=== PATIENT | female | born 1995 | race Caucasian/White ===

== ENCOUNTER 2018-04-17 08:16 | Emergency (ER) | payer BC ==
[2018-04-17] MEDS ORDERED: IBUPROFEN 600 MG TAB PO ONE (09:20)
--- NOTE | 2018-04-17 09:58 | EDPHY ---
H & P Time Seen by Provider: 04/17/18 09:01 HPI/ROS: CHIEF COMPLAINT: Chest pain HISTORY OF PRESENT ILLNESS: 22-year-old female presents emergency department with left-sided chest pain. The patient states that symptoms began yesterday and have been getting worse. She does not feel short of breath however she does have pain with deep breathing as well as palpation to the left side of her chest as well as movement of the left upper extremity. 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 She denies any other known reported trauma. No abdominal pain. No neck pain. She has some left upper back pain as well. No recent travel. No calf pain or swelling. Denies . REVIEW OF SYSTEMS: Constitutional: No fever, no chills. Eyes: No double or blurry vision. ENT: No sore throat. Respiratory: No cough, no shortness of breath. Cardiac: Left-sided chest pain as above. Gastrointestinal: No abdominal pain, vomiting or diarrhea. Genitourinary: No dysuria. Musculoskeletal: No neck or back pain. Skin: No rashes. Neurological: No headache. Past Medical/Surgical History: Negative Social History: [employer] student Smoking Status: Never smoked Physical Exam: General Appearance: Alert, no distress. Eyes: Pupils equal and round. Extraocular motions are all intact. ENT: Mouth: Mucous membranes moist. Respiratory: No wheezing, rhonchi, or rales, lungs are clear to auscultation. Reproducible pain with palpation to the left anterior aspect of her chest wall just above the left breast as well as reproducible pain to the posterior aspect of the left shoulder. No palpable crepitus or other bony abnormality. Cardiovascular: Regular rate and rhythm. Gastrointestinal: Abdomen is soft and nontender, no masses, no rebound or guarding, bowel sounds normal. Neurological: Alert and oriented x 3, cranial nerves II through XII grossly intact Skin: Warm and dry, no rashes. Musculoskeletal: Nontender to palpate along the cervical, thoracic or lumbar spine. Neck is supple. Extremities: Full range of motion and no peripheral edema. She has reproducible pain with range of motion of the left upper extremity as well. Psychiatric: Patient is oriented X 3, there is no agitation. Constitutional: Initial Vital Signs Temperature (C) 36.7 C 04/17/18 08:19 Heart Rate 84 04/17/18 08:19 Respiratory Rate 18 04/17/18 08:19 Blood Pressure 152/107 H 04/17/18 08:19 O2 Sat (%) 97 04/17/18 08:19 O2 Delivery Mode Room Air Allergies/Adverse Reactions: amoxicillin Allergy (Verified 04/17/18 08:18) Home Medications: Medication Instructions Recorded Bcp 04/17/18 Medical Decision Making - Diagnostics EKG Interpretation: EKG reveals normal sinus rhythm. This was reviewed by Dr. Vernon Jay. See interpretation in trace master. ED Course/Re-evaluation: 22-year-old female presents to the emergency department with left-sided chest pain. Pain is reproducible with palpation as well as movement of her left upper extremity. Because her pain was also reproducible with deep breathing, D- dimer has been ordered and is negative. I doubt this patient has pulmonary embolism given reproducible pain. She was given oral ibuprofen in the emergency department. EKG is unremarkable. The patient was given 600 mg of oral ibuprofen. She was re-evaluated and feeling much better. I think her symptoms are likely musculoskeletal in nature. There reproducible with palpation as well as movement of her upper extremity. She feels comfortable being discharged home. Differential Diagnosis: Chest pain including but not limited to myocardial ischemia, pulmonary embolus, chest wall pain, pleural inflammation and pulmonary infectious causes. - Data Points Laboratory Results: 04/17/18 08:30 D-Dimer 0.35 ug/mLFEU ug/mLFEU (0.00-0.50) Medications Given: Discontinued Medications Ibuprofen (Motrin) 600 mg PO EDNOW ONE Stop: 04/17/18 09:21 Last Admin: 04/17/18 09:32 Dose: 600 mg Departure - Departure Disposition: Home, Routine, Self-Care Clinical Impression: Chest wall pain Condition: Good Instructions: Chest Wall Pain (ED) Additional Instructions: Ibuprofen 600 mg every 8 hr as needed for pain. Deep breaths and activity as tolerated. Return to the emergency department if you developed increasing pain , shortness of breath, or if you feel worse in any way. Referrals: Laila Farley MD [[facility] [place] Primary Care Provider] - 1 day, if not improved ( Primary care provider commissioned police officer)
[2018-04-17 10:40] VITALS: BP 140/101
--- NOTE | 2018-04-26 06:45 | CPEKG ---
Test Reason : OPEN Blood Pressure : / mmHG Vent. Rate : 072 BPM Atrial Rate : 070 BPM P-R Int : 135 ms QRS Dur : 089 ms QT Int : 395 ms P-R-T Axes : 023 062 029 degrees QTc Int : 433 ms Sinus rhythm Confirmed by Vernon Jay ([id number]) on 04/26/2018 6:44:58 AM Referred By: Confirmed By:Vernon Jay
== END 2018-04-17 10:45 | disposition home or self-care (01) ==
DX: R07.9 Chest pain, unspecified (principal)